=== PATIENT | male | born 1975 | race Two or more races ===

== ENCOUNTER 2022-07-12 08:02 | Day surgery (SDC) | payer OTHER ==
[~2022-07-12] VITALS: Ht 177.8 cm; Wt 93.0 kg
[~2022-07-12 08:02] MED LIST: LIPITOR40 M1 PO
== END 2022-07-12 17:20 | disposition home or self-care (01) ==
LOC: CIR.AMB 08:02
PROVIDERS: ATTEND Urology
DX: N43.3 Hydrocele, unspecified (principal); Z20.822 Contact with and (suspected) exposure to COVID-19